=== PATIENT | male | born 1980 | race Hispanic/Latino ===

== ENCOUNTER 2019-12-18 18:18 | Emergency (ER) | payer SELFPAY ==
[2019-12-18] MEDS ORDERED: Acetaminophen 500 MG TAB ONE (19:38)
--- NOTE | 2019-12-18 20:44 | RAD ---
RIGHT HUMERUS: 12/18/19 Two views. HISTORY: Pain. FINDINGS/IMPRESSION: There is a displaced fracture involving the distal humerus. Postoperative changes are noted with mult iple screws, several of which are fractured and have been displaced. The humerus appears foreshortene d. There are no comparison studies. POS: [facility]
--- NOTE | 2019-12-18 20:57 | ULT ---
RIGHT UPPER EXTREMITY VENOUS DUPLEX EXAM: 12/18/19 INDICATIONS: Right upper extremity pain and edema. Veins of the right upper extremity evaluated with ultrasound and Doppler with color Doppler and spect ral analysis and compression. Right internal jugular veins shows normal blood flow and compression. Right subclavian vein demonstrate normal flow with Doppler study. Right axillary vein, basilic vein, brachial vein, cephalic vein, radial vein, and ulnar vein were all evaluated. These veins all show normal flow and compression. No evidence of venous thrombosis. IMPRESSION: No evidence of venous thrombosis right upper extremity. POS: [facility]
== END 2019-12-18 20:20 | disposition home or self-care (01) ==
LOC: ERS 18:18
DX: S42.401A Unspecified fracture of lower end of right humerus, initial encounter for closed fracture (principal); X58.XXXA Exposure to other specified factors, initial encounter